=== PATIENT | male | born 1990 | race Caucasian/White ===

== ENCOUNTER → 2016-07-30 | Outpatient (CLI) | payer OTHER | LOC: LAB 13:47 | PROVIDERS: ATTEND Nurse Practitioner Family | DX: R10.13 Epigastric pain (principal) | CPT/HCPCS: 36415; 86677 ==

== ENCOUNTER 2016-10-11 07:30 | Observation (INO) | payer OTHER ==
[2016-10-11] MEDS ORDERED: METHYLPREDNISOLONE INJ 125 MG/2 ML SDV IV ONE (12:35)
[2016-10-11] MEDS ORDERED: ALBUTEROL SULFATE 0.083% NEB 2.5 MG/3 ML AMPUL NEB ONE (12:36)
--- NOTE | 2016-10-11 12:42 | ER Document Report ---
ED Respiratory Problem - General Mode of Arrival: Ambulatory Information source: Patient TRAVEL OUTSIDE OF THE [place] IN LAST 30 DAYS: No - HPI Patient complains to provider of: Short of breath Onset: Last week Context: Hx asthma - as a child Associated symptoms: Other - see notes above <ANA LILIA AZEVEDO - Last Filed: 10/11/16 16:05> <SAVANNAH SHANKS - Last Filed: 10/16/16 21:15> - General Chief Complaint: Breathing Difficulty Stated Complaint: DIFFICULTY BREATHING Notes: 26 year old male with history of GERD and asthma (as a child) presents to the ED complaining of chest tightness (congestion) and shortness of breath that started last week. Patient reports that his roommate was ill with a upper respiratory infection and bronchitis 2 weeks ago. Patient developed similar symptoms and saw an Urgent Care 1 week ago. Patient was prescribed Z-medhat, Ventolin, Singulair, and tessalon pearls. Patient reports slight improvement, but his breathing has worsened since being seen at the Urgent Care. Patient explains that he doesn't smoke, but his roommate has recently started smoking. Patient states that he began having hot flashes when taking his Nexium with benzonatate and Singulair, so he discontinued them. Patient's primary care provider is Vale Tucker. (ANA LILIA AZEVEDO) - Related Data Allergies/Adverse Reactions: lavender (Lavandula angustifolia) Allergy (Verified 10/11/16 07:33) shrimp Allergy (Verified 10/11/16 07:33) Home Medications: Current Home Medications Benzonatate [Tessalon Perles 100 mg Capsule] 100 mg PO TIDP PRN 10/11/16 [ History] Montelukast Sodium [Singulair 10 mg Tablet] 10 mg PO QPM 10/11/16 [History] Past Medical History - General Information source: Patient - Social History Smoking Status: Never Smoker Chew tobacco use (# tins/day): No Frequency of alcohol use: None Drug Abuse: None Family History: None Patient has suicidal ideation: No Patient has homicidal ideation: No Pulmonary Medical History: Reports: Hx Asthma - during childhood Renal/ Medical History: Denies: Hx Peritoneal Dialysis GI Medical History: Reports: Hx Gastroesophageal Reflux Disease Surgical Hx: Negative - Immunizations Hx Diphtheria, Pertussis, Tetanus Vaccination: Yes <ANA LILIA AZEVEDO - Last Filed: 10/11/16 16:05> Review of Systems - Review of Systems Constitutional: No symptoms reported EENT: No symptoms reported Cardiovascular: See HPI, Chest pain - "tightness" Respiratory: See HPI, Short of breath Gastrointestinal: No symptoms reported Genitourinary: No symptoms reported Male Genitourinary: No symptoms reported Musculoskeletal: No symptoms reported Skin: No symptoms reported Hematologic/Lymphatic: No symptoms reported Neurological/Psychological: No symptoms reported -: Yes All other systems reviewed and negative <ANA LILIA AZEVEDO - Last Filed: 10/11/16 16:05> Physical Exam - General General appearance: Alert In distress: None - HEENT Head: Normocephalic, Atraumatic Eyes: Normal Extraocular movements intact: Yes Pupils: PERRL - Respiratory Respiratory status: No respiratory distress Breath sounds: Decreased air movement - bilaterally, Wheezing - end expiratory wheeze - Cardiovascular Rhythm: Regular Heart sounds: Normal auscultation - Abdominal Inspection: Normal - Back Back: Normal - Extremities General upper extremity: Normal inspection, Normal ROM General lower extremity: Normal inspection, Normal ROM - Neurological Neuro grossly intact: Yes Cognition: Normal Orientation: AAOx4 Kiln Coma Scale Eye Opening: Spontaneous [place] Coma Scale Verbal: Oriented Kil[place] Coma Scale Motor: Obeys Commands Dulce Coma Scale Total: 15 Speech: Normal - Psychological Associated symptoms: Normal affect, Normal mood - Skin Skin Temperature: Warm Skin Moisture: Dry Skin Color: Normal <ANA LILIA AZEVEDO - Last Filed: 10/11/16 16:05> Course - Consults Dr. Shukla Time consulted: 16:06 <ANA LILIA AZEVEDO - Last Filed: 10/11/16 16:05> - Laboratory Result Diagrams: 10/11/16 18:15 <SAVANNAH SHANKS - Last Filed: 10/16/16 21:15> - Re-evaluation Re-evalutation: 10/11/16 15:53 I personally performed the services described in the documentation, reviewed and edited the documentation which was dictated to my scribe in my presence, and it accurately records my words and actions. History presents emergency, chief complaint of difficulty breathing chest tightness especially with physical activity. He was seen and evaluated for a few days ago by primary care physician wheezing diagnosed with upper respiratory infection bronchitis placed on Z-Medhat inhalers cough medication he says he is not getting any better. He is nonsmoker he had childhood asthma is roommates to started smoking or on him he's been unable breathing and wheezing ever since. On ED arrival he is tightness expiratory wheeze very restricted with conversational dyspnea. Chest x-ray negative for acute pneumonia. After treatment still with expiratory wheezes walked around the department short of breath with ambulation 94% on room air. We'll admit him the hospital for observation. (SAVANNAH SHANKS) - Vital Signs Vital signs: Temp Pulse Resp BP Pulse Ox 97.8 F 113 H 22 H 140/68 H 96 10/12/16 13:09 10/12/16 13:09 10/12/16 13:09 10/12/16 07:12 10/12/16 13:09 - Consults Dr. Shukla Reason for consultation: 10/11/16 16:06 Patient was discussed with Dr. Shukla and agrees to admit the patient for observation. (ANA LILIA AZEVEDO) Discharge <ANA LILIA AZEVEDO - Last Filed: 10/11/16 16:05> - Discharge Admitting Provider: Hospitalist Unit Admitted: Medical Floor <SAVANNAH SHANKS - Last Filed: 10/16/16 21:15> - Discharge Clinical Impression: Asthma exacerbation Condition: Fair Disposition: HOME, SELF-CARE Scribe Documentation - Scribe Written by Scribe:: Meagan Xiao, 10/11/2016 1252 acting as scribe for :: Martínez <ANA LILIA AZEVEDO - Last Filed: 10/11/16 16:05>
[2016-10-11] MEDS: MAGNESIUM SULFATE/D5W 100 ML IV SCH ×2 (13:32→15:16)
[2016-10-11] MEDS: IPRATROPIUM BROMIDE 0.02% NEB 0.5 MG/2.5 ML AMPUL NEB PRN ×2 (13:32→15:17)
--- NOTE | 2016-10-11 17:41 | PDOC H&P ---
History of Present Illness Admission Date/PCP: 10/11/16 16:31 DILSHAD TUCKER NP Patient complains of: Shortness of breath History of Present Illness: OLGA ELLINGTON is a 26 year old male presents to the ED complaining of chest tightness (congestion) and shortness of breath that started last week. Patient reports that his roommate was ill with a upper respiratory infection and bronchitis 2 weeks ago. Patient developed similar symptoms and saw an Urgent Care 1 week ago. Patient was prescribed Z-criselda , Ventolin, Singulair, and tessalon pearls. Patient reports slight improvement, but his breathing has worsened since being seen at the Urgent Care. Patient explains that he doesn't smoke, but his roommate has recently started smoking. Patient states that he began having hot flashes when taking his Nexium with benzonatate and Singulair, so he discontinued them. Patient's primary care provider is Vale Tucker. (ANA LILIA AZEVEDO) The ED patient was found to be in [id number] respiratory distress with wheezes bilaterally Chest x-ray did not show any infiltrate Patient was admitted for observation under hospitalist service for further evaluation and care Past Medical History Pulmonary Medical History: Reports: Asthma - during childhood GI Medical History: Reports: Gastroesophageal Reflux Disease Social History Information Source: Patient Smoking Status: Never Smoker Frequency of Alcohol Use: None Drugs: None - Advance Directive Resuscitation Status: Full Code Surrogate healthcare decision maker:: Mother Alexandra Family History Family History: None, Other - Overweight Parental Family History Reviewed: Yes Children Family History Reviewed: Yes Sibling(s) Family History Reviewed.: Yes Medication/Allergy Home Medications: Albuterol Sulfate [Ventolin Hfa] 2 puff IH Q6 PRN 10/11/16 Benzonatate [Tessalon Perles 100 mg Capsule] 100 mg PO TIDP PRN 10/11/16 Montelukast Sodium [Singulair 10 mg Tablet] 10 mg PO QPM 10/11/16 Allergies/Adverse Reactions: lavender (Lavandula angustifolia) Allergy (Verified 10/11/16 07:33) shrimp Allergy (Verified 10/11/16 07:33) Review of Systems Constitutional: ABSENT: chills, fever(s), headache(s), weight gain, weight loss Eyes: ABSENT: visual disturbances Ears: ABSENT: hearing changes Cardiovascular: ABSENT: chest pain, dyspnea on exertion, edema, orthropnea, palpitations Respiratory: PRESENT: as per HPI, cough, dyspnea, sputum - Yellowish. ABSENT: hemoptysis Gastrointestinal: ABSENT: abdominal pain, constipation, diarrhea, hematemesis, hematochezia, nausea, vomiting Genitourinary: ABSENT: dysuria, hematuria Musculoskeletal: ABSENT: joint swelling Integumentary: ABSENT: rash, wounds Neurological: ABSENT: abnormal gait, abnormal speech, confusion, dizziness, focal weakness, syncope Psychiatric: ABSENT: anxiety, depression, homidical ideation, suicidal ideation Endocrine: ABSENT: cold intolerance, heat intolerance, polydipsia, polyuria Hematologic/Lymphatic: ABSENT: easy bleeding, easy bruising Physical Exam Vital Signs: Temp Pulse Resp BP Pulse Ox 97.8 F 96 18 138/84 H 93 10/11/16 17:00 10/11/16 07:35 10/11/16 17:01 10/11/16 17:00 10/11/16 17:01 General appearance: PRESENT: no acute distress, well-developed, well-nourished Head exam: PRESENT: atraumatic, normocephalic Eye exam: PRESENT: conjunctiva pink, EOMI, PERRLA. ABSENT: scleral icterus Ear exam: PRESENT: normal external ear exam Mouth exam: PRESENT: moist, tongue midline Neck exam: ABSENT: carotid bruit, JVD, lymphadenopathy, thyromegaly Respiratory exam: PRESENT: decreased breath sounds, wheezes - Bilaterally. ABSENT: rales, rhonchi Cardiovascular exam: PRESENT: RRR. ABSENT: diastolic murmur, rubs, systolic murmur Pulses: PRESENT: normal dorsalis pedis pul Vascular exam: PRESENT: normal capillary refill GI/Abdominal exam: PRESENT: normal bowel sounds, soft. ABSENT: distended, guarding, mass, organolmegaly, rebound, tenderness Rectal exam: PRESENT: deferred Extremities exam: PRESENT: full ROM. ABSENT: calf tenderness, clubbing, pedal edema Neurological exam: PRESENT: alert, awake, oriented to person, oriented to place , oriented to time, oriented to situation, CN II-XII grossly intact. ABSENT: motor sensory deficit Psychiatric exam: PRESENT: appropriate affect, normal mood. ABSENT: homicidal ideation, suicidal ideation Skin exam: PRESENT: dry, intact, warm. ABSENT: cyanosis, rash Results Impressions: Chest X-Ray 10/11/16 07:38 IMPRESSION: NO SIGNIFICANT RADIOGRAPHIC FINDING IN THE CHEST. Assessment & Plan - Diagnosis (1) Bronchitis Is this a current diagnosis for this admission?: Yes (2) Asthma exacerbation Is this a current diagnosis for this admission?: Yes - Time Time Spent with patient: Patient did not improved with outpatient management on Zithromax; nebs We will admit him overnight place him on methylprednisolone , duo nebs, Zosyn Reevaluate in a.m. He may be discharged in a.m. if improved Time Spent: 50 to 70 Minutes - Inpatient Certification Based on my medical assessment, after consideration of the patient's comorbidities, presenting symptoms, or acuity I expect that the services needed warrant INPATIENT care.: No
[2016-10-11] MEDS ORDERED: PANTOPRAZOLE SODIUM 40 MG VIAL IV SCH (18:00)
[2016-10-11] MEDS ORDERED: MONTELUKAST SODIUM 10 MG TABLET PO SCH (18:00)
[2016-10-11 18:47] LABS: ABSOLUTE EOSINOPHILS # (AUTO) 0.2 10^3/uL (0.0-0.6); ABSOLUTE MONOCYTES (AUTO) 0.1 10^3/uL (0.1-1.4); ABSOLUTE NEUT (AUTO) 12.5 10^3/uL (1.7-8.2); BASOPHILS % (AUTO) 0.3 % (0-2); EOSINOPHILS % (AUTO) 1.2 % (0-6); HEMATOCRIT 54.7 % (37.9-51.0); HEMOGLOBIN 18.8 g/dL (13.5-17.0); HGB HCT DIFFERENCE 1.7; LYMPHOCYTES % (AUTO) 7.4 % (13-45); MEAN CORPUSCULAR HGB CONC 34.4 g/dL (32.0-36.0); MEAN CORPUSCULAR VOLUME 81 fl (80-97); MONOCYTES % (AUTO) 0.8 % (3-13); RED BLOOD COUNT 6.72 10^6/uL (4.35-5.55); RED CELL DISTRIBUTION WIDTH 13.2 % (11.5-14.0); SEGMENTED NEUTROPHILS % (AUTO) 90.3 % (42-78); WHITE BLOOD COUNT 13.9 10^3/uL (4.0-10.5)
[2016-10-11] MEDS: IPRATROPIUM/ALBUTEROL 0.5-2.5 MG/3 ML AMPUL NEB SCH (20:05)
--- NOTE | 2016-10-11 20:45 | EKG REPORT ---
SEVERITY:- NORMAL ECG - SINUS RHYTHM : Confirmed by: Ruben Antoine 11-Oct-2016 20:44:35
[2016-10-11] MEDS: METHYLPREDNISOLONE INJ 125 MG/2 ML SDV IV SCH (21:50)
[2016-10-11] MEDS: PIPERACILLIN SODIUM/TAZOBACTAM 3.375 GM in NORMAL SALINE 100 ML IV SCH (21:50)
[2016-10-12] MEDS: PIPERACILLIN SODIUM/TAZOBACTAM 3.375 GM in NORMAL SALINE 100 ML IV SCH ×2 (03:25→08:05)
[2016-10-12] MEDS: METHYLPREDNISOLONE INJ 125 MG/2 ML SDV IV SCH (05:31)
[2016-10-12] MEDS: IPRATROPIUM/ALBUTEROL 0.5-2.5 MG/3 ML AMPUL NEB SCH (05:50)
[2016-10-12] MEDS ORDERED: ALBUTEROL SULFATE 0.083% NEB 2.5 MG/3 ML AMPUL NEB PRN ×2 (07:49→07:55)
[2016-10-12] MEDS ORDERED: ENOXAPARIN SODIUM INJ 40 MG/0.4 ML DISP.SYRIN SUBCUT SCH (08:00)
[2016-10-12 08:34] VITALS: BP 140/68
--- NOTE | 2016-10-12 14:03 | PDOC DISCHARGE SUMMARY ---
General - Admit/Disc Date/PCP Admission Date/Primary Care Provider: 10/11/16 17:30 DILSHAD TUCKER NP Discharge Date: 10/12/16 - Discharge Diagnosis (1) Bronchitis Is this a current diagnosis for this admission?: YesSummary: Patient was admitted with cough productive of purulent secretions A chest xray did not show an infiltrate He had failed outpatient therapy with zithromax Patient received Zosyn IV on day of admission and was discharged on Augmentin po (2) Asthma exacerbation Is this a current diagnosis for this admission?: YesSummary: Patient had scattered wheezes and SOB on admission He was treated with IV steroids and nebs He improved and was discharged on prednisone taper - Additional Information Resuscitation Status: Full Code Discharge Diet: As Tolerated Discharge Activity: Activity As Tolerated, Balance Activity w/Rest, Energy Conservation, Slowly Increase Activity Home Medications: Benzonatate [Tessalon Perles 100 mg Capsule] 100 mg PO TIDP PRN 10/11/16 Montelukast Sodium [Singulair 10 mg Tablet] 10 mg PO QPM 10/11/16 Albuterol Sulfate [Ventolin Hfa] 2 puff IH Q4H PRN #1 inhaler 10/12/16 Amoxicillin/Potassium Clav [Augmentin 875-125 Tablet] 1 each PO BID #14 tablet 10/12/16 Fluticasone/Salmeterol [Advair 250-50 Diskus 28 dose] 1 inh IH Q12H #1 inhaler 10/12/16 Prednisone 20 mg PO ASDIR #12 tablet 10/12/16 History of Present Illness Patient complains of: shortness of breath History of Present Illness: OLGA ELLINGTON is a 26 year old male presents to the ED complaining of chest tightness (congestion) and shortness of breath that started last week. Patient reports that his roommate was ill with a upper respiratory infection and bronchitis 2 weeks ago. Patient developed similar symptoms and saw an Urgent Care 1 week ago. Patient was prescribed Z-criselda , Ventolin, Singulair, and tessalon pearls. Patient reports slight improvement, but his breathing has worsened since being seen at the Urgent Care. Patient explains that he doesn't smoke, but his roommate has recently started smoking. Patient states that he began having hot flashes when taking his Nexium with benzonatate and Singulair, so he discontinued them. Patient's primary care provider is Vale Tucker. (ANA LILIA AZEVEDO) The ED patient was found to be in [id number] respiratory distress with wheezes bilaterally Chest x-ray did not show any infiltrate Patient was admitted for observation under hospitalist service for further evaluation and care Hospital Course Hospital Course: see above Physical Exam Vital Signs: Temp Pulse Resp BP Pulse Ox 97.8 F 113 H 22 H 140/68 H 96 10/12/16 13:09 10/12/16 13:09 10/12/16 13:09 10/12/16 07:12 10/12/16 13:09 Intake & Output 10/11/16 10/12/16 10/13/16 00:59 00:59 00:59 Intake Total 350 Balance 350 Weight 125.2 kg General appearance: PRESENT: no acute distress, well-developed, well-nourished Head exam: PRESENT: atraumatic, normocephalic Eye exam: PRESENT: conjunctiva pink, EOMI, PERRLA. ABSENT: scleral icterus Ear exam: PRESENT: normal external ear exam Mouth exam: PRESENT: moist, tongue midline Neck exam: ABSENT: carotid bruit, JVD, lymphadenopathy, thyromegaly Respiratory exam: PRESENT: wheezes - feww scattered. ABSENT: rales, rhonchi Cardiovascular exam: PRESENT: RRR. ABSENT: diastolic murmur, rubs, systolic murmur Pulses: PRESENT: normal dorsalis pedis pul Vascular exam: PRESENT: normal capillary refill GI/Abdominal exam: PRESENT: normal bowel sounds, soft. ABSENT: distended, guarding, mass, organolmegaly, rebound, tenderness Rectal exam: PRESENT: deferred Extremities exam: PRESENT: full ROM. ABSENT: calf tenderness, clubbing, pedal edema Neurological exam: PRESENT: alert, awake, oriented to person, oriented to place , oriented to time, oriented to situation, CN II-XII grossly intact. ABSENT: motor sensory deficit Psychiatric exam: PRESENT: appropriate affect, normal mood. ABSENT: homicidal ideation, suicidal ideation Skin exam: PRESENT: dry, intact, warm. ABSENT: cyanosis, rash Results Laboratory Results: 10/11/16 18:15 10/11/16 18:15 WBC 13.9 H RBC 6.72 H Hgb 18.8 H Hct 54.7 H MCV 81 MCH 28.0 MCHC 34.4 RDW 13.2 Plt Count 285 Seg Neutrophils % 90.3 H Lymphocytes % 7.4 L Monocytes % 0.8 L Eosinophils % 1.2 Basophils % 0.3 Absolute Neutrophils 12.5 H Absolute Lymphocytes 1.0 Absolute Monocytes 0.1 Absolute Eosinophils 0.2 Absolute Basophils 0.0 Impressions: Chest X-Ray 10/11/16 07:38 IMPRESSION: NO SIGNIFICANT RADIOGRAPHIC FINDING IN THE CHEST. Plan Discharge Plan: discharge home follow up with PMD in 1 week Time Spent: Less than 30 Minutes
== END 2016-10-12 13:30 | disposition home or self-care (01) ==
LOC: ER 07:30 → UNDOADMOB 16:31 → EH 16:31 → 2N 17:40
PROVIDERS: ADMIT Emergency Medicine; ATTEND Emergency Medicine
PROC: 3E033GC Introduction of Other Therapeutic Substance into Peripheral Vein, Percutaneous Approach (ICD-10-PCS; principal; 2016-10-11)
PROC: 3E033GC Introduction of Other Therapeutic Substance into Peripheral Vein, Percutaneous Approach (ICD-10-PCS; 2016-10-11)
DX: J45.901 Unspecified asthma with (acute) exacerbation (principal); Z77.22 Contact with and (suspected) exposure to environmental tobacco smoke (acute) (chronic); K21.9 Gastro-esophageal reflux disease without esophagitis
CPT/HCPCS: 93005; 94640 ×4; 99285; 96375; 96365; 96366; 36415; 87040; 85025; 71020; 93010; G0378 ×3; J2930 ×2; J3475; S0164; J3490; J7620 ×2; J2543 ×2